=== PATIENT | male | born 1990 | race Caucasian/White ===

== ENCOUNTER 2018-02-07 13:46 | Emergency (ER) | payer SELFPAY, OTHER ==
[2018-02-07] MEDS: KETOROLAC 30 MG INJ IM (14:54)
[2018-02-07] MEDS ORDERED: HYDROCODONE/APAP (5/325) TAB PO (16:30)
== END 2018-02-07 16:15 | disposition left against medical advice (07) ==
LOC: FTE 13:46
DX: L08.9 Local infection of the skin and subcutaneous tissue, unspecified (principal); M79.672 Pain in left foot
CPT/HCPCS: 96372; 99284-25